=== PATIENT | male | born 1965 | race American Indian/Alaskan Native ===

== ENCOUNTER 2017-06-07 08:09 | Emergency (ER) | payer SELFPAY ==
[2017-06-07 09:07] LABS: Basophils % (Auto) 0.4 % (0.0-1.8); Eosinophils % (Auto) 1.3 % (0.0-4.3); Hematocrit 43.4 % (35.5-45.6); Hemoglobin 14.3 gm/dl (11.8-15.2); Mean Corpuscular HGB Conc 33 % (32-34); Mean Corpuscular Hemoglobin 28 pg (28-32); Mean Corpuscular Volume 85 fl (84-94); Platelet Count 127 K/mm3 (140-440); Red Blood Count 5.11 M/mm3 (3.65-5.03); Red Cell Distribution Width 15.8 % (13.2-15.2); White Blood Count 2.7 K/mm3 (4.5-11.0)
--- NOTE | 2017-06-07 09:09 | Cat Scan Report ---
CT HEAD WITHOUT CONTRAST: HISTORY: Severe headache. Serial contiguous axial images were obtained through the cranium. Intravenous contrast material was not administered. The ventricles are normal in size and appearance. There is no mass effect or midline shift. No areas of abnormally increased or decreased attenuation are seen. No mass lesion is seen. The mastoid air cells and visualized portions of the sinuses are normal. IMPRESSION: Cranial CT scan within normal limits.
[2017-06-07 09:20] LABS: Anion Gap 17 mmol/L; BUN/Creatinine Ratio 15.45; Blood Urea Nitrogen 17 mg/dL (9-20); Carbon Dioxide 24 mmol/L (22-30); Chloride 98.5 mmol/L (98-107); Glucose 149 mg/dL (75-100); Potassium 3.9 mmol/L (3.6-5.0); Sodium 136 mmol/L (137-145)
[2017-06-07] MEDS ORDERED: NACL 0.9% 1000 ML 1,000 ML IV ONE (10:59)
[2017-06-07] MEDS ORDERED: REGLAN IV ONE (10:59)
[2017-06-07] MEDS ORDERED: TORADOL IV ONE (10:59)
--- NOTE | 2017-06-07 11:00 | Emergency Department Report ---
ED Headache HPI - General Chief Complaint: Headache Stated Complaint: HEADACHE AND DIZZY/NAUSEA Time Seen by Provider: 06/07/17 10:43 Source: patient Exam Limitations: no limitations - History of Present Illness Initial Comments: 52-year-old male with a history of HIV last known CD4 count of 400 or greater here with complaint of headache. He's had similar headaches in the past she describes a headache at the front of his head starting at 6 PM last night and radiating to the back of his head. Denies other associated symptoms including nausea vomiting fever or photophobia. Describes the headache as an occasional throbbing with constant ache. Timing/Duration: other (18 hours) Quality: moderate Recent Head Trauma: occasional headaches Modifying Factors: worse with: cold therapy, exposure to light, immobilization, medication, movement Associated Symptoms: other (mentions history of meningitis). denies: confusion , fatigue, facial pain, fever/chills, loss of consciousness, nausea/vomiting, nasal congestion, seizures, sinus infection, stiff neck Allergies/Adverse Reactions: Allergies No Known Allergies Allergy (Verified 06/07/17 08:25) Home Medications: Ambulatory Orders Ibuprofen [Motrin] 600 mg PO Q8H PRN #30 tablet 06/07/17 Ondansetron [Zofran Odt] 4 mg PO Q6HR PRN #10 tab.rapdis 06/07/17 ED Review of Systems ROS: Stated complaint: HEADACHE AND DIZZY/NAUSEA Other details as noted in HPI Comment: All other systems reviewed and negative Constitutional: denies: chills, fever Eyes: denies: eye pain, eye discharge, vision change ENT: denies: ear pain, throat pain Respiratory: denies: cough, shortness of breath, wheezing Cardiovascular: denies: chest pain, palpitations Endocrine: no symptoms reported Gastrointestinal: denies: abdominal pain, nausea, diarrhea Genitourinary: denies: urgency, dysuria Musculoskeletal: denies: back pain, joint swelling, arthralgia Skin: denies: rash, lesions Neurological: denies: headache, weakness, paresthesias Psychiatric: denies: anxiety, depression Hematological/Lymphatic: denies: easy bleeding, easy bruising ED Past Medical Hx - Past Medical History Previous Medical History?: Yes Hx HIV: Yes Additional medical history: Anemic. Meningitis. HIV - Surgical History Past Surgical History?: No - Family History Family history: no significant - Social History Smoking Status: Never Smoker Substance Use Type: None - Medications Home Medications: Home Medications Medication Instructions Recorded Confirmed Last Taken Type Ibuprofen [Motrin] 600 mg PO Q8H PRN #30 tablet 06/07/17 Unknown Rx Ondansetron [Zofran Odt] 4 mg PO Q6HR PRN #10 tab.rapdis 06/07/17 Unknown Rx ED Physical Exam - General Limitations: No Limitations General appearance: alert, in no apparent distress - Head Head exam: Present: atraumatic, normocephalic - Eye Eye exam: Present: normal appearance, PERRL, EOMI Pupils: Present: normal accommodation, other (no photophobia) - ENT ENT exam: Present: normal orophraynx, mucous membranes moist - Neck Neck exam: Present: normal inspection - Respiratory Respiratory exam: Present: normal lung sounds bilaterally. Absent: respiratory distress - Cardiovascular Cardiovascular Exam: Present: regular rate, normal rhythm. Absent: systolic murmur, diastolic murmur, rubs, gallop - GI/Abdominal GI/Abdominal exam: Present: soft, normal bowel sounds - Rectal Rectal exam: Present: deferred - Extremities Exam Extremities exam: Present: normal inspection - Back Exam Back exam: Present: normal inspection - Neurological Exam Neurological exam: Present: alert, oriented X3 - Expanded Neurological Exam Expanded Patient oriented to: Present: person, place Speech: Present: fluid speech Cranial nerves: EOM's Intact: Normal Cerebellar function: Finger to Nose: Normal, Heel to Johnson: Normal Upper motor neuron: Brain Neglect: Normal, Pronator Drift: Normal Sensory exam: Upper Extremity Light Touch: Normal, Lower Extremity Light Touch: Normal Motor strength exam: RUE: 5, LUE: 5, RLE: 5, LLE: 5 Best Eye Response (Tiger): (4) open spontaneously Best Motor Response (Giovanny): (6) obeys commands Best Verbal Response (Tiger): (5) oriented Tiger Total: 15 - Psychiatric Psychiatric exam: Present: normal affect, normal mood - Skin Skin exam: Present: warm, dry, intact, normal color. Absent: rash ED Course Vital Signs 06/07/17 06/07/17 08:26 10:00 Temperature 97.9 F 97.6 F Pulse Rate 61 54 L Respiratory 20 16 Rate Blood Pressure 102/70 Blood Pressure 104/72 [Left] O2 Sat by Pulse 100 98 Oximetry ED Medical Decision Making - Lab Data Result diagrams: 06/07/17 08:51 06/07/17 08:51 Laboratory Results - last 24 hr 06/07/17 06/07/17 08:51 08:51 WBC 2.7 L RBC 5.11 H Hgb 14.3 Hct 43.4 MCV 85 MCH 28 MCHC 33 RDW 15.8 H Plt Count 127 L Lymph % (Auto) 44.0 H Darke % (Auto) 6.8 Eos % (Auto) 1.3 Baso % (Auto) 0.4 Lymph # 1.2 Darke # 0.2 Eos # 0.0 Baso # 0.0 Seg Neutrophils % 47.5 Seg Neutrophils # 1.3 L Sodium 136 L Potassium 3.9 Chloride 98.5 Carbon Dioxide 24 Anion Gap 17 BUN 17 Creatinine 1.1 Estimated GFR > 60 BUN/Creatinine Ratio 15.45 Glucose 149 H Calcium 9.0 - Medical Decision Making 52-year-old male with a history of HIV on medications and normal CD4 count here with complaint of headache that started at 6 PM last night. He has a history of what he believes to be spinal meningitis likely viral. He has no neck stiffness photophobia. I do not suspect he has meningitis. He has a negative head CT and normal labs. Treat him with IV fluids pain meds and plan to reassess. Portions of this chart were dictated with dictation software. There may be dictation errors contained within this note. Critical care attestation.: If time is entered above; I have spent that time in minutes in the direct care of this critically ill patient, excluding procedure time. ED Disposition Clinical Impression: Headache Disposition: DC-01 TO HOME OR SELFCARE Is pt being admited?: No Condition: Stable Instructions: Tension Headache (ED) Additional Instructions: Please follow up with her primary care doctor. Prescriptions: Ibuprofen [Motrin] 600 mg PO Q8H PRN #30 tablet PRN Reason: Pain Ondansetron [Zofran Odt] 4 mg PO Q6HR PRN #10 tab.rapdis PRN Reason: Nausea And Vomiting Referrals: PRIMARY CARE, [Primary Care Provider] - 3-5 Days
[2017-06-07 13:08] VITALS: BP 106/75
== END 2017-06-07 13:08 | disposition home or self-care (01) ==
LOC: ED 08:09
DX: R51 Headache (principal)
CPT/HCPCS: 36415; 70450; 80048; 85025; 96361; 96374; 96375; 99284; J1885; J2765; J7030